=== PATIENT | female | born 1970 | race Caucasian/White ===

== ENCOUNTER 2017-06-19 19:10 | Emergency (ER) | payer OTHER ==
[2017-06-19 19:30] VITALS: BP 146/92; PULSE 72; RESP 16; O2SAT 98
[2017-06-19] MEDS ORDERED: VENL75CA95 PO (19:32)
[2017-06-19] MEDS ORDERED: oxyCODONE-Acetamin 5-325 mg Tablet PO ONE (20:35)
[2017-06-19] MEDS ORDERED: Bupivacaine-MPF 0.5% 30 mL Inj ONE (20:41)
--- NOTE | 2017-06-19 20:41 | ED.REPORT ---
HPI-Dental/Mouth Prob Date of Service Jun 19, 2017 ED Provider: Talha Francis PA-C Radha is an otherwise healthy 46-year-old female presenting with chief complaint of left-sided jaw pain. She describes the pain as shooting and sharp. Patient reports that she developed pain roughly one week ago, and was seen by her dentist. She is referred to an oral surgeon, Dr. Jackson Garcia who saw her today and performed a procedure on tooth 20, her left second bicuspid. Patient states that she had a incomplete root canal performed years ago and this tooth, which was addressed by the surgeon today. She states he noted infection and injected antibiotics into the region. Her dentist placed her on Vicodin and clindamycin. She reports taking one Vicodin at 7:30 this morning, being given 600 mg ibuprofen and 500 mg of acetaminophen by her dentist at 1 and taking another Vicodin at 3:30 this afternoon. Denies difficult breathing or swallowing, fever, chills, malaise. Nursing Notes Stated Complaint: EXTREME SHOOTING PAIN LEFT SIDE OF JAW BONE Chief Complaint: Dental Nursing Notes Reviewed: Yes Allergies: Coded Allergies: No Known Allergies (Verified , 06/19/17) Scheduled Venlafaxine ER (Venlafaxine ER) 75 Mg Cap.er.24h 75 MG PO DAILY General Time Seen by MD: 20:17 Chief Complaint Tooth pain Past Medical History Past Medical History 1. Female stress incontinence. 2. Anxiety treated mass to the with Effexor but weaned off about four weeks ago. 3. Kidney stones 4. UTIs Past Surgical History Denies Family History She has a son and a with type 1 diabetes, otherwise noncontributory. Smoking History Never Smoker Social History She is . She has two children. No tobacco. No alcohol. No other drug use. Alcohol Use: Denies alcohol use Drug Use: Denies drug use Other Social History: , Lives with children, Local resident Ambulatory Status Independent Review of Systems Review of Systems Note: Negative unless stated otherwise in history of present illness Physical Exam General: Well appearing, well developed, well nourished, no acute distress. Head: Atraumatic, normocephalic. No mastoid tenderness. Eyes: No scleral icterus or injection. No discharge. PERRL. Vision grossly intact. Ears: Pinna and tragus nontender with manipulation. External auditory canal patent, atraumatic and without discharge. Tympanic membrane sanchez, shiny and translucent without fluid, bulging, retraction or perforation. Hearing grossly intact. Nose: Symmetrical, nares patent without discharge. No frontal or maxillary sinus tenderness. Mouth/pharynx: Tooth #20 shows evidence of recent procedure at the apex. It is tender to percussion. There is no redness, swelling or discharge noted. There is no fluctuant mass. Mild swelling noted and left jaw. Mucus membranes moist. Tonsils 2+ and symmetrical, uvula midline. Pharynx noninjected, no cobblestoning or discharge. Voice clear. Neck: Negative swelling, redness, induration. No tenderness or lymphadenopathy. Trachea midline. Respiratory: No respiratory distress, no increased work of breathing. Speaks in complete sentences. Skin: Warm and dry. Neurological: Grossly nonfocal. Psychological: alert and oriented. Speech appropriate, linear and logical. Behavior appropriate. Initial Vital Signs Vital Signs (First) Date Time Temp Pulse Resp B/P Pulse Ox O2 Delivery O2 Flow Rate FiO2 06/19/17 19:30 36.3 72 16 146/92 98 Room Air Elevated blood pressure Procedures Dental Nerve Block Block Performed by: ED physician (Dr. Engle) Consent / Setup / Site Prep: Consent from patient, Hand hygiene observed Anesthesia: Inferior alveolar block Local Anesthesia: Bupivacaine 0.5%, 4cc, 27g needle Post-Procedure / Complications: No complications, Condition improved, Tolerated procedure well, Patient stable, No bleeding Re-Eval/Medical Decision Med Decision/Clinical Course Otherwise healthy 46-year-old female presents with left-sided jaw and dental pain. Patient reports being seen by her dentist and an oral surgeon in the last day, prescribed Vicodin, clindamycin and having the procedure performed on her left tooth #20 today. She reports surprising, sharp shooting pain in her left lower jaw after the dental block wore off. She reports that she was told to expect dull pain. Denies difficulty breathing or swallowing, fever, chills, malaise. Close questioning suggests that she has been under medicating herself with her Vicodin. Physical examination reveals evidence of drooling and tooth #20, tender to percussion with a tongue blade, negative redness, swelling, discharge or fluctuance. Oropharynx is symmetrical, no redness, or induration. Mild swelling noted on the left lower jaw. Vital signs are normal with exception of some mild elevated blood pressure. I discussed case with Dr. Engle, who advises pain medications in the emergency department as well as offering a dental block, which the patient accepts. Dr. Engle performed a dental block per procedure note above. Patient is treated with ibuprofen and Percocet in the emergency department. We are reassured against peritonsillar abscess, Mathieu's angina, retropharyngeal abscess, osteomyelitis, dental abscess. We believe she is stable and safe be discharged. Advised baseline pain control and ibuprofen, supplementation with previously prescribed Vicodin. Advised follow-up with oral surgeon tomorrow. Provide emergent return precautions. Patient verbalizes understanding of and consented to the plan. Re-Evaluation/Progress : Time of Eval: 22:42 Re-Evaluation/Progress Note: after 3 attempts at inferior alveolar nerve block, pain is resloved. Discharge & Departure Primary Impression: Toothache Additional Impression: Elevated blood pressure reading Disposition: Home Discharge Condition All VS Reviewed: Yes Condition: Stable Additional Instructions: Evaluation for dental pain in the emergency department includes interview and physical examination both of which suggests that you are pain is not caused by immediately dangerous condition. We believe he is stable and safe to go home. We have provided with pain medications here in the emergency department and performed a dental block and additional temporary relief. This should wear off in several hours. Beginning at 3 AM you can take 600 mg of ibuprofen every 6 hours. To this you can add one to 2 previously prescribed Vicodin for additional pain relief. Please do not drive or drink alcohol within 4 hours of taking this medication. Cold compresses will also be helpful Continue taking the clindamycin as instructed. Follow-up tomorrow with your oral surgeon. Return to the emergency department for new or worsening symptoms including fever , difficulty breathing or swallowing. I also note that your blood pressure was elevated during your visit to the emergency department. Please discuss this with your primary care provider. Referrals: Dash Fernandes MD (PCP) EDSupervising Provider for APC: Kenyon Engle MD Attending Statement I personally examined this patient and performed an alveolar nerve block. copies to: Dash Fernandes MD, Seth PA-C Jun 19, 2017 20:41 Kenyon Engle MD Jun 19, 2017 22:44
[2017-06-19 23:19] VITALS: BP 134/88; PULSE 78; RESP 16; O2SAT 99
== END 2017-06-19 23:19 | disposition home or self-care (01) ==
LOC: SED 19:10
DX: K08.89 Other specified disorders of teeth and supporting structures (principal); R03.0 Elevated blood-pressure reading, without diagnosis of hypertension; F41.9 Anxiety disorder, unspecified; Z87.442 Personal history of urinary calculi; Z87.440 Personal history of urinary (tract) infections